=== PATIENT | female | born 1970 | race Caucasian/White ===

== ENCOUNTER 2023-12-19 23:14 | Emergency (ER) | payer MEDICAID ==
[~2023-12-19] VITALS: Ht 154.9 cm; Wt 71.0 kg
[2023-12-19 23:36] VITALS: O2SAT 100
[2023-12-20] MEDS ORDERED: LIDOCAINE HCL/PF 1% 10 MG/ML 5ML VIAL INFIL ONE (00:45)
[2023-12-20] MEDS ORDERED: BACITRACIN ZINC OINT UDPKT TOP ONE (00:45)
[2023-12-20] MEDS: TETANUS, DIPHTHERIA, PERTUSSIS VAC/PF 0.5ML (>10YR OLD) IM ONE (01:54)
[2023-12-20 02:56] VITALS: BP 140/92; PULSE 102; RESP 18; TEMP 98.7
== END 2023-12-20 02:56 | disposition home or self-care (01) ==
LOC: ER 23:14
DX: S02.2XXA Fracture of nasal bones, initial encounter for closed fracture (principal); S01.01XA Laceration without foreign body of scalp, initial encounter; Y08.89XA Assault by other specified means, initial encounter; Y93.89 Activity, other specified; Y92.89 Other specified places as the place of occurrence of the external cause; Y99.8 Other external cause status
CPT/HCPCS: 99285; 81025; 70450; 70486; 90715; 12002; 90471; J3490; Z7610